=== PATIENT | male | born 1990 | race Two or more races ===

== ENCOUNTER 2020-05-07 12:58 | Emergency (ER) | payer MEDICAID ==
[~2020-05-07] VITALS: Ht 177.8 cm; Wt 95.3 kg
--- NOTE | 2020-05-07 13:16 | NUR ---
PT IS IN ROOM #2A. DR BALLARD EVALUATED THE PT.
[2020-05-07] MEDS ORDERED: ACETAMINOPHEN 325 MG TABLET PO ONE (13:30)
[2020-05-07] MEDS ORDERED: SULFAMETH/TRIMETH 800/160 MG TABLET PO ONE (13:30)
[2020-05-07] MEDS ORDERED: DOXYCYCLINE HYCLATE 100 MG TABLET PO ONE (13:30)
[2020-05-07] MEDS ORDERED: DOXYCYCLINE HYCLATE 100 MG TABLET ONE (13:33)
[2020-05-07] MEDS ORDERED: ACETAMINOPHEN 325 MG TABLET ONE (13:33)
[2020-05-07] MEDS ORDERED: SULFAMETH/TRIMETH 800/160 MG TABLET ONE (13:34)
--- NOTE | 2020-05-07 14:13 | NUR ---
pt was d/c'D to home. d/c instuctions given to the pt by dr Epps.
[2020-05-07 14:14] VITALS: BP 139/79
== END 2020-05-07 14:15 | disposition home or self-care (01) ==
LOC: ER 13:03
DX: L03.112 Cellulitis of left axilla (principal)
CPT/HCPCS: A4663

== ENCOUNTER 2020-11-06 13:03 | Emergency (ER) | payer SELFPAY ==
[~2020-11-06] VITALS: Ht 177.8 cm; Wt 95.3 kg
[2020-11-06 14:06] VITALS: BP 123/82
== END 2020-11-06 14:06 | disposition home or self-care (01) ==
LOC: ER 13:03
DX: S06.0X0A Concussion without loss of consciousness, initial encounter (principal); S00.81XA Abrasion of other part of head, initial encounter; W19.XXXA Unspecified fall, initial encounter; Y92.832 Beach as the place of occurrence of the external cause; R40.2362 Coma scale, best motor response, obeys commands, at arrival to emergency department; R40.2142 Coma scale, eyes open, spontaneous, at arrival to emergency department; R40.2252 Coma scale, best verbal response, oriented, at arrival to emergency department
CPT/HCPCS: A4663